=== PATIENT | female | born 2000 | race Caucasian/White ===

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

== ENCOUNTER 2020-04-19 23:56 | Emergency (ER) | payer BC ==
[2020-04-20 00:02] VITALS: RESP 18; TEMP 99.3
[2020-04-20] MEDS ORDERED: ONDANSETRON 4 MG ODT STARTER PACK 2 TAB BTL PO STA (02:17)
[2020-04-20] MEDS ORDERED: ONDANSETRON ODT 4 MG TAB PO STA (02:17)
[2020-04-20] MEDS ORDERED: KETOROLAC 60 MG/2 ML VIAL IM STA (02:17)
--- NOTE | 2020-04-20 02:25 | ED ---
Skin/Abscess/FB HPI - General Chief complaint: Skin/Abscess/Foreign Body Stated complaint: Sunburn Time Seen by Provider: 04/20/20 02:11 Source: patient Mode of arrival: ambulatory Limitations: no limitations - History of Present Illness Initial comments: Patient is a 19-year-old female presenting to the emergency Department with complaints of a sunburn that happened today. Patient states the sunburn is hurting so severe that she has become nauseous and feels like she is hyperventilating a little bit. She does have a history of asthma. She states that she is still a bit nauseous, no active vomiting now. She denies any chest pain, shortness of breath, recent fever or chills. She has no other pertinent past medical history, she has no other complaints at this time. - Related Data Home Medications Medication Instructions Recorded Confirmed Albuterol Inhaler (Mhu) [Ventolin 2 puff INHALATION RT-Q6H PRN 04/02/18 04/02/18 Hfa Inhaler] Fluticasone/Vilanterol [Breo 1 puff INHALATION RT-DAILY 04/02/18 04/02/18 Ellipta 100-25 Mcg Inhaler] Montelukast [Singulair] 10 mg PO HS 04/02/18 04/02/18 Allergies Allergy/AdvReac Type Severity Reaction Status Date / Time No Known Allergies Allergy Verified 04/20/20 00:02 Review of Systems ROS Statement: Those systems with pertinent positive or pertinent negative responses have been documented in the HPI. ROS Other: All systems not noted in ROS Statement are negative. Past Medical History Past Medical History: Asthma History of Any Multi-Drug Resistant Organisms: None Reported Past Surgical History: No Surgical Hx Reported Past Psychological History: No Psychological Hx Reported Smoking Status: Never smoker Past Alcohol Use History: None Reported Past Drug Use History: None Reported General Exam - General Exam Comments Initial Comments: GENERAL: Well-appearing, well-nourished and in no acute distress. HEAD: Atraumatic, normocephalic. EYES: Pupils equal round and reactive to light, extraocular movements intact, sclera anicteric, conjunctiva are normal. ENT: TMs normal, nares patent, oropharynx clear without exudates. Moist mucous membranes. NECK: Normal range of motion, supple without lymphadenopathy or JVD. LUNGS: Breath sounds clear to auscultation bilaterally and equal. No wheezes rales or rhonchi. HEART: Regular rate and rhythm without murmurs, rubs or gallops. ABDOMEN: Soft, nontender, normoactive bowel sounds. No guarding, no rebound. No masses appreciated. : Deferred EXTREMITIES: Normal range of motion, no pitting or edema. No clubbing or cyanosis. NEUROLOGICAL: Normal speech, normal gait. PSYCH: Normal mood, normal affect. SKIN: Warm, Dry, normal turgor. Patient has a first-degree superficial sunburn to bilateral upper thighs and her entire back. She also has a small amount on her bilateral forearms. There is no blistering.. Limitations: no limitations Course Vital Signs 04/19/20 04/20/20 04/20/20 23:57 00:10 01:19 Temperature 99.3 F Pulse Rate 122 H 109 H 110 H Respiratory 18 18 Rate Blood Pressure 125/74 98/64 O2 Sat by Pulse 98 98 Oximetry Medical Decision Making - Medical Decision Making Patient is a 19-year-old female here for a sunburn that she got today which was becoming severe that she started having nausea. She did vomit a few times at home. Her vitals are stable here. There has been no active vomiting in the ER. Patient has a first-degree sunburn to majority of her back. There is no blistering. Patient will be given Toradol injection for inflammation and pain control as well as Zofran for the nausea. I will send her home with a Zofran starter pack. I recommended a cool wash cloths to the sunburn as well as I continued ibuprofen at home. She is stable for discharge. She is agreeable with this plan of care. Return parameters were discussed with the patient she verbalized understanding. Case discussed with Dr. Schwartz. Disposition Clinical Impression: Sunburn of first degree, Nausea & vomiting Disposition: HOME SELF-CARE Condition: Stable Instructions (If sedation given, give patient instructions): Sunburn (ED) Additional Instructions: Please return to the Emergency Department if symptoms worsen or any other fawad rns. May take ibuprofen for discomfort. Apply cool washcloths's or take cool showers for symptom relief. May take Zofran for additional nausea. Is patient prescribed a controlled substance at d/c from ED?: No Referrals: Miguel Kahn MD [Primary Care Provider] - 1-2 days
[2020-04-20 02:42] VITALS: BP 133/89; PULSE 88
== END 2020-04-20 02:49 | disposition home or self-care (01) ==
LOC: EC 23:56
DX: L55.0 Sunburn of first degree (principal); R11.2 Nausea with vomiting, unspecified; J45.909 Unspecified asthma, uncomplicated; Z79.51 Long term (current) use of inhaled steroids
CPT/HCPCS: 99282; 96372; J1885; S0119

== ENCOUNTER 2021-04-08 16:57 | Emergency (ER) | payer BC ==
[2021-04-08 17:02] VITALS: RESP 18
[2021-04-08] MEDS ORDERED: KETOROLAC 15 MG/ML 1 ML VIAL IVP STA (18:02)
[2021-04-08] MEDS ORDERED: ONDANSETRON 4 MG/2 ML VIAL IVP STA (18:02)
[2021-04-08] MEDS ORDERED: SODIUM CHLORIDE 0.9% 1,000 ML IV STA (18:02)
[2021-04-08 18:36] LABS: Basophils # (A) 0.1 k/uL (0-0.2); Basophils % (A) 1 %; Eosinophils # (A) 0.2 k/uL (0-0.7); Eosinophils % (A) 1 %; HGB 15.2 gm/dL (11.4-16.0); Lymphocytes # (A) 2.5 k/uL (1.0-4.8); Lymphocytes % (A) 19 %; MCH 27.4 pg (25.0-35.0); MCHC 34.5 g/dL (31.0-37.0); MCV 79.3 fL (80.0-100.0); Mean Platelet Volume 7.3; Monocytes # (A) 0.8 k/uL (0-1.0); Monocytes % (A) 6 %; Neutrophils # (A) 9.5 k/uL (1.3-7.7); Neutrophils % (A) 72 %; Platelet Count 360 k/uL (150-450); RBC 5.55 m/uL (3.80-5.40); RDW 14.4 % (11.5-15.5); WBC 13.2 k/uL (4.0-11.0)
[2021-04-08 18:39] LABS: Appearance,Urine Cloudy (Clear); Bacteria,Urine Rare /hpf; Bilirubin,Urine 1+ (Negative); Blood,Urine Negative (Negative); Color,Urine Yellow; Glucose,Urine (UA) Negative (Negative); Hyaline Casts,Urine 10 /lpf (0-2); Ketones,Urine 3+ (Negative); Leukocyte Esterase,Urine Moderate (Negative); Mucus,Urine Many /hpf; Nitrite,Urine Negative (Negative); Protein,Urine 2+ (Negative); RBC,Urine 8 /hpf (0-5); Specific Gravity,Urine 1.044 (1.001-1.035); Squamous Epithelial Cell,Urine 11 /hpf (0-4); WBC,Urine 19 /hpf (0-5)
[2021-04-08 18:50] LABS: ALT 32 U/L (4-34); AST 36 U/L (14-36); African American GFR (CKD) >90 (>60 ml/min/1.73 sqM); Albumin 4.9 g/dL (3.5-5.0); Alkaline Phosphatase 135 U/L (38-126); Amylase 40 U/L (30-110); Anion Gap 13 mmol/L; Blood Urea Nitrogen 7 mg/dL (7-17); Carbon Dioxide 24 mmol/L (22-30); Chloride 105 mmol/L (98-107); Glucose 85 mg/dL (74-99); Lipase 36 U/L (23-300); Non-African American GFR(CKD) >90 (>60 ml/min/1.73 sqM); Potassium 4.4 mmol/L (3.5-5.1); Sodium 142 mmol/L (137-145); Total Bilirubin 0.6 mg/dL (0.2-1.3)
--- NOTE | 2021-04-08 19:19 | CT ---
EXAMINATION TYPE: CT abdomen pelvis w con DATE OF EXAM: 04/08/2021 COMPARISON: None HISTORY: Right lower quadrant pain, nausea, vomiting, diarrhea and fever x [address] DLP: 2017.8 mGycm Automated exposure control for dose reduction was used. CONTRAST: Performed with IV Contrast, patient injected with 100 mL of Isovue 300. Lung bases are clear. There is no pleural effusion. Heart size is normal. There is no pericardial eff usion. Liver spleen stomach pancreas gallbladder appear intact. The bile ducts are not dilated. There is no adrenal mass. Kidneys show satisfactory contrast opacification. There is no hydronephrosi s. Ureters are not dilated. Delayed images show normal renal excretion. There is no retroperitoneal a denopathy. Bladder is almost empty. There is no inguinal hernia. Uterus is anteverted. I see no pelvi c mass. There is no free fluid in the pelvis. There is no mesenteric edema. There is no ascites or free air. There is no evidence of a bowel obstru ction. Appendix is lateral and appears normal. I see no intestinal wall thickening. There are some sc attered small bowel mesenteric lymph nodes measuring up to 10 mm. The lumbar vertebra have normal spacing and alignment. Posterior elements are intact. There is no com pression fracture. The bony pelvis is intact. The hip joints are intact. There is no hip dysplasia. IMPRESSION: Normal appendix. There are few nonspecific small bowel mesenteric lymph nodes.
[2021-04-08] MEDS ORDERED: SODIUM CHLORIDE 0.9% 500 ML 500 ML IV STA (19:29)
--- NOTE | 2021-04-08 19:32 | ED ---
Abdominal Pain HPI - General Chief Complaint: Abdominal Pain Stated Complaint: Abd Pain Time Seen by Provider: 04/08/21 17:57 Source: patient Mode of arrival: ambulatory Limitations: no limitations - History of Present Illness Initial Comments: Patient is a 20-year-old female presenting to the emergency Department with complaints of nausea, vomiting, diarrhea and some right-sided abdominal pain for the past 4-5 days. She states she has had night sweats and chills but has not taken her temperature. She denies being as she is not sexually active. She denies any abdominal surgical history. She denies any medications. The pain is mostly in the right lower quadrant with some mild radiation towards the front. She denies history of kidney stones. She denies any chest pain or shortness of breath, no coughing. She has no further complaints at this time. Her vital signs are stable upon arrival. - Related Data Home Medications Medication Instructions Recorded Confirmed Albuterol Inhaler (Mhu) [Ventolin 2 puff INHALATION RT-Q6H PRN 04/02/18 04/02/18 Hfa Inhaler] Fluticasone/Vilanterol [Breo 1 puff INHALATION RT-DAILY 04/02/18 04/02/18 Ellipta 100-25 Mcg Inhaler] Montelukast [Singulair] 10 mg PO HS 04/02/18 04/02/18 Previous Rx's Medication Instructions Recorded Azithromycin [Zithromax] 500 mg PO DAILY #5 tab 04/08/21 Ondansetron Odt [Zofran Odt] 4 mg PO Q8HR PRN #10 tab 04/08/21 Allergies Allergy/AdvReac Type Severity Reaction Status Date / Time No Known Allergies Allergy Verified 04/08/21 17:02 Review of Systems ROS Statement: Those systems with pertinent positive or pertinent negative responses have been documented in the HPI. ROS Other: All systems not noted in ROS Statement are negative. Past Medical History Past Medical History: Asthma History of Any Multi-Drug Resistant Organisms: None Reported Past Surgical History: No Surgical Hx Reported Past Psychological History: No Psychological Hx Reported Smoking Status: Former smoker Past Alcohol Use History: None Reported Past Drug Use History: None Reported General Exam - General Exam Comments Initial Comments: GENERAL: Patient is well-developed and well-nourished. Patient is nontoxic and in no acute distress. HEAD: Atraumatic, normocephalic. EYES: Pupils equal round and reactive to light, extraocular movements intact, sclera anicteric, conjunctiva are normal. Eyelids were unremarkable. ENT: TMs normal, nares patent, oropharynx clear without exudates. Moist mucous membranes. NECK: Normal range of motion, supple without lymphadenopathy or JVD. LUNGS: Unlabored respirations. Breath sounds clear to auscultation bilaterally and equal. No wheezes rales or rhonchi. HEART: Regular rate and rhythm without murmurs, rubs or gallops. ABDOMEN: Soft, tender in the right lower quadrant, normoactive bowel sounds. No guard ing, no rebound. No masses appreciated. : Deferred MUSCULOSKELETAL: Normal extremities with adequate strength and normal range of motion, no pitting or edema. No clubbing or cyanosis. NEUROLOGICAL: Patient is alert and oriented x 3. Motor and sensory are also intact. Cranial nerves II through XII grossly intact. Symmetrical smile. Normal speech, normal gait. PSYCH: Normal mood, normal affect. SKIN: Warm, Dry, normal turgor, no rashes or lesions noted. Limitations: no limitations Course Vital Signs 04/08/21 04/08/21 16:58 19:47 Temperature 98.8 F 98.3 F Pulse Rate 89 74 Respiratory 18 18 Rate Blood Pressure 150/85 127/64 O2 Sat by Pulse 98 97 Oximetry Medical Decision Making - Medical Decision Making Patient is a 20-year-old female here for nausea, vomiting, diarrhea and right lower quadrant abdominal pain for the past 4-5 days. Her vitals are stable upon arrival. She is quite tender in the right lower quadrant. Patient has a slight white count at 13.2, lactic acid is normal 1.1, urine does show 3+ ketones, 7 wbc's and rare bacteria. Urine culture is pending. CT of the abdomen shows a normal appendix, there are a few nonspecific small bowel mesenteric lymph nodes, measuring up to 10 mm. No other acute abnormalities. Patient was given fluids, Toradol and Zofran. She is resting comfortably and feels improvement. I discussed these findings with the patient. Patient will be given antibiotic for possible infectious diarrhea, Zofran for an additional nausea or vomiting. She is stable for discharge and she is in agreement with this plan of care. Return parameters were discussed with her and she verbalized understanding. Case discussed with Dr. Hargrove. - Lab Data Result diagrams: 04/08/21 18:15 04/08/21 18:15 Lab Results 04/08/21 04/08/21 04/08/21 Range/Units 18:15 18:15 18:15 WBC 13.2 H (4.0-11.0) k/uL RBC 5.55 H (3.80-5.40) m/uL Hgb 15.2 (11.4-16.0) gm/dL Hct 44.0 (34.0-46.0) % MCV 79.3 L (80.0-100.0) fL MCH 27.4 (25.0-35.0) pg MCHC 34.5 (31.0-37.0) g/dL RDW 14.4 (11.5-15.5) % Plt Count 360 (150-450) k/uL MPV 7.3 Neutrophils % 72 % Lymphocytes % 19 % Monocytes % 6 % Eosinophils % 1 % Basophils % 1 % Neutrophils # 9.5 H (1.3-7.7) k/uL Lymphocytes # 2.5 (1.0-4.8) k/uL Monocytes # 0.8 (0-1.0) k/uL Eosinophils # 0.2 (0-0.7) k/uL Basophils # 0.1 (0-0.2) k/uL Sodium (137-145) mmol/L Potassium (3.5-5.1) mmol/L Chloride (98-107) mmol/L Carbon Dioxide (22-30) mmol/L Anion Gap mmol/L BUN (7-17) mg/dL Creatinine (0.52-1.04) mg/dL Est GFR (CKD-EPI)AfAm (>60 ml/min/1.73 sqM) Est GFR (CKD-EPI)NonAf (>60 ml/min/1.73 sqM) Glucose (74-99) mg/dL Plasma Lactic Acid Virgil (0.7-2.0) mmol/L Calcium (8.4-10.2) mg/dL Total Bilirubin (0.2-1.3) mg/dL AST (14-36) U/L ALT (4-34) U/L Alkaline Phosphatase (38-126) U/L Total Protein (6.3-8.2) g/dL Albumin (3.5-5.0) g/dL Amylase (30-110) U/L Lipase (23-300) U/L Urine Color Yellow Urine Appearance Cloudy H (Clear) Urine pH 6.0 (5.0-8.0) Ur Specific [place] 1.044 H (1.001-1.035) Urine Protein 2+ H (Negative) Urine Glucose (UA) Negative (Negative) Urine Ketones 3+ H (Negative) Urine Blood Negative (Negative) Urine Nitrite Negative (Negative) Urine Bilirubin 1+ H (Negative) Urine Urobilinogen 3.0 (<2.0) mg/dL Ur Leukocyte Esterase Moderate H (Negative) Urine RBC 8 H (0-5) /hpf Urine WBC 19 H (0-5) /hpf Ur Squamous Epith Cells 11 H (0-4) /hpf Urine Bacteria Rare H (None) /hpf Hyaline Casts 10 H (0-2) /lpf Urine Mucus Many H (None) /hpf Urine HCG, Qual Not Detected (Not Detectd) 04/08/21 04/08/21 Range/Units 18:15 18:15 WBC (4.0-11.0) k/uL RBC (3.80-5.40) m/uL Hgb (11.4-16.0) gm/dL Hct (34.0-46.0) % MCV (80.0-100.0) fL MCH (25.0-35.0) pg MCHC (31.0-37.0) g/dL RDW (11.5-15.5) % Plt Count (150-450) k/uL MPV Neutrophils % % Lymphocytes % % Monocytes % % Eosinophils % % Basophils % % Neutrophils # (1.3-7.7) k/uL Lymphocytes # (1.0-4.8) k/uL Monocytes # (0-1.0) k/uL Eosinophils # (0-0.7) k/uL Basophils # (0-0.2) k/uL Sodium 142 (137-145) mmol/L Potassium 4.4 (3.5-5.1) mmol/L Chloride 105 (98-107) mmol/L Carbon Dioxide 24 (22-30) mmol/L Anion Gap 13 mmol/L BUN 7 (7-17) mg/dL Creatinine 0.69 (0.52-1.04) mg/dL Est GFR (CKD-EPI)AfAm >90 (>60 ml/min/1.73 sqM) Est GFR (CKD-EPI)NonAf >90 (>60 ml/min/1.73 sqM) Glucose 85 (74-99) mg/dL Plasma Lactic Acid Virgil 1.1 (0.7-2.0) mmol/L Calcium 10.0 (8.4-10.2) mg/dL Total Bilirubin 0.6 (0.2-1.3) mg/dL AST 36 (14-36) U/L ALT 32 (4-34) U/L Alkaline Phosphatase 135 H (38-126) U/L Total Protein 8.0 (6.3-8.2) g/dL Albumin 4.9 (3.5-5.0) g/dL Amylase 40 (30-110) U/L Lipase 36 (23-300) U/L Urine Color Urine Appearance (Clear) Urine pH (5.0-8.0) Ur Specific [place] (1.001-1.035) Urine Protein (Negative) Urine Glucose (UA) (Negative) Urine Ketones (Negative) Urine Blood (Negative) Urine Nitrite (Negative) Urine Bilirubin (Negative) Urine Urobilinogen (<2.0) mg/dL Ur Leukocyte Esterase (Negative) Urine RBC (0-5) /hpf Urine WBC (0-5) /hpf Ur Squamous Epith Cells (0-4) /hpf Urine Bacteria (None) /hpf Hyaline Casts (0-2) /lpf Urine Mucus (None) /hpf Urine HCG, Qual (Not Detectd) Disposition Clinical Impression: Abdominal pain, Nausea vomiting and diarrhea, Dehydration Disposition: HOME SELF-CARE Condition: Stable Instructions (If sedation given, give patient instructions): Dehydration (ED) Additional Instructions: Please return to the Emergency Department if symptoms worsen or any other concerns. Take antibiotics as prescribed, may take Zofran for any additional nausea or vomiting. Follow-up with your primary care physician in 1-3 days. Prescriptions: Azithromycin [Zithromax] 500 mg PO DAILY #5 tab Ondansetron Odt [Zofran Odt] 4 mg PO Q8HR PRN #10 tab PRN Reason: Nausea Is patient prescribed a controlled substance at d/c from ED?: No Referrals: Criss,Miguel, MD [Primary Care Provider] - 1-2 days Time of Disposition: 19:58
[2021-04-08 20:19] VITALS: BP 115/76; PULSE 59; TEMP 97.8
== END 2021-04-08 20:21 | disposition home or self-care (01) ==
LOC: EC 16:57
DX: R10.31 Right lower quadrant pain (principal); R11.2 Nausea with vomiting, unspecified; R19.7 Diarrhea, unspecified; E86.0 Dehydration; R61 Generalized hyperhidrosis; R68.83 Chills (without fever); J45.909 Unspecified asthma, uncomplicated; Z87.891 Personal history of nicotine dependence; Z79.51 Long term (current) use of inhaled steroids
CPT/HCPCS: 36415; 80053; 82150; 83605; 83690; 85025; 81001; 81025; 87086; 74177; 99284; 96374; 96375; 96361; J2405; J1885; Q9967

== ENCOUNTER 2024-07-29 20:57 | Emergency (ER) | payer BC ==
[2024-07-29 21:11] VITALS: TEMP 98
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
--- NOTE | 2024-07-29 21:45 | XR ---
EXAMINATION TYPE: XR knee complete LT DATE OF EXAM: 07/29/2024 9:41 PM CLINICAL INDICATION:Female, 23 years old with history of medial knee pain with ROM; [facility] COMPARISON: None. TECHNIQUE: The Left knee(s) was examined in Frontal, lateral and oblique projections. FINDINGS: No evidence of any acute osseous pathology, soft tissue swelling, or joint effusion is no shira. IMPRESSION: No acute osseous pathology. [facility], , 07/29/2024 9:43 PM
[2024-07-29 22:56] VITALS: BP 127/86; PULSE 67; RESP 18
== END 2024-07-29 22:56 | disposition home or self-care (01) ==
LOC: EC 20:57
CPT/HCPCS: 99283

== ENCOUNTER → 2024-11-26 | Outpatient (CLI) | payer BC ==
--- NOTE | 2024-11-27 07:27 | MR ---
EXAMINATION TYPE: MR knee LT wo con DATE OF EXAM: 11/26/2024 COMPARISON: Left knee x-ray July 29, 2024 HISTORY: Left knee pain and swelling x2 months, Multiple falls TECHNIQUE: Multiplanar, multisequence images of the knee is performed without IV contrast. FINDINGS: MEDIAL MENISCUS: Anterior and posterior horns are intact without tear. LATERAL MENISCUS: Anterior and posterior horns are intact without tear. CRUCIATE LIGAMENTS: The anterior and posterior cruciate ligaments are intact and unremarkable. COLLATERAL LIGAMENTS: The medial collateral ligament and lateral collateral ligament complex are inta ct and unremarkable. EXTENSOR MECHANISM: Visualized quadriceps and patellar tendons are intact. Mild edema superior aspect of Hoffa's fat pad reference sagittal image 12 EFFUSION: [id number] size suprapatellar joint effusion. POPLITEAL CYST: No popliteal/rockwell cyst. TRICOMPARTMENT SPACES: Tricompartment joint spaces are maintained. No significant spurring is seen. CARTILAGE: Tricompartmental articular cartilage is preserved. BONE MARROW SIGNAL: Overall heterogeneity is present. Small areas of heterogeneous increased T2 signa l involving the distal femur. For reference posterior lateral aspect distal medial femoral condyle sa gittal image 20 measuring around 1.8 cm and additional less prominent areas involving the anterior an d posterior aspect of the distal lateral femoral condyle sagittal image 10 and 11. Additional area of involvement posterior superior aspect of the patella. OTHER: No additional significant abnormality is appreciated. IMPRESSION: 1. No meniscal or ligamentous tear is seen. 2. Multifocal areas of abnormal bone marrow edema in the distal femur and superior patella as detaile d above. Consider repeat recent trauma correlating with patient's history of multiple falls. 3. Small to moderate-sized suprapatellar joint effusion. 4. Abnormal edema superior aspect of Hoffa's fat pad, correlate for possible impingement syndrome. [facility], , 11/27/2024 7:25 AM
== END | disposition home or self-care (01) ==
LOC: RADMRIMAIN 19:36
PROVIDERS: ATTEND Orthopaedic Surgery
DX: M25.462 Effusion, left knee (principal); R60.0 Localized edema; R29.6 Repeated falls